=== PATIENT | male | born 1950 | race Caucasian/White ===

== ENCOUNTER 2017-02-28 08:58 | Emergency (ER) | payer OTHER ==
[~2017-02-28] VITALS: Ht 188 cm; Wt 115.9 kg
[~2017-02-28 08:58] MED LIST: no med's
[2017-02-28 09:03] VITALS: BP 154/87; PULSE 56; RESP 24; O2SAT 96
--- NOTE | 2017-02-28 09:18 | ED.REPORT ---
HPI-Stroke / CVA February 28, 2017 ED Provider: Dr. Becerra 66 y/o male with no pertinent hx presents to the ED complaining of aphasia about 4 weeks ago. The pt reports he had an [facility]ural [facility] for his [facility] pain 4 weeks ago. As per his , on their way home from the [facility], the pt was quiet, his responses were delayed and unclear. He also experienced a significant decrease in appetite and balance. The pt had an MRI and was told to go to the ED today after Dr. Soni got the MRI results a week ago and told the pt he may have had a stroke. The pt's friends and family had also noticed the symptoms. Currently, the pt feels slightly fatigued but reports improvement in his speech and appetite. He feels better overall and is able to carry out his daily activities normally. As per the , his sx resolved about 2 weeks ago. He denies numbness, weakness, dysphagia, dysuria, hematuria and hematochezia. The pt's reports she would not have asked the pt to come in had they not received a call from their doctor regarding the MRI results. The pt's father had a CVA at age 70. Nursing Notes Stated Complaint: POSSIBLE STROKE Chief Complaint: Neuro Symptoms/ Deficits Nursing Notes Reviewed: Yes ([employer], meds not reconciled) Allergies: Coded Allergies: No Known Allergies (Unverified Allergy, Unknown, 07/17/14) Scheduled Atorvastatin (Lipitor) 10 Mg Tab 10 MG PO DAILY Miscellaneous Medications ([no med's]) (Reported) General Time Seen by Provider: 09:35 Chief Complaint Unable to speak Hx Obtained From: Patient Arrived By: Walk-in Time last known well 4 weeks ago Sudden in Onset?: Yes Symptom Duration: 21 - 23 hours Progression Since Onset: Resolved Severity: Current: No pain currently Severity: Maximum: No pain Recent Healthcare: Recent doctor visit Similar Sx Previous: No Risk Factors NIH Stroke Scale Level of Consciousness: Alert and responsive (0) Ask Month & Age: Both questions right (0) Open/Close Eyes/Hand College Associate: Performs both tasks (0) Horizontal EO Movements: None (0) Visual Odom: No visual loss (0) Facial Palsy: Normal symmetry (0) Right Arm Motor Drift (10s): No drift 10 sec (0) Left Arm Motor Drift (10s): No drift 10 sec (0) Right Leg Motor Drift (5s): No drift 5 sec (0) Left Leg Motor Drift (5s): No drift 5 sec (0) Limb Ataxia FNF/Heel-Crawford: No ataxia (0) Sensation (Arms/Legs/Face): No sensory loss (0) Language Aphasia: No aphasia, normal (0) Dysarthria: No dysarthria, normal (0) Extinction/Inattention: No exctinct/inattent (0) NIHSS Score: 0 Time NIHSS Performed: 09:40 Date NIHSS Performed: February 28, 2017 )( CVA Risk Stratification Age >60 Risk factors reviewed Past Medical History Past Medical History Diverticulitis Kidney stons Back injury Past Surgical History RTKA IHR UHR removal of fatty lipoma MRSA sx Smoking History Former Smoker Social History Alcohol Use: "Social" Drug Use: Denies drug use Other Social History: Good social support, Ambulatory Status Independent Review of Systems Reports: decrease in appetite. Reports: change in balance. Constitutional: Reports: Fatigue GI: Denies: Dysphagia, Hematochezia Neurologic: Reports: Unable to speak, Denies: Numbness, Weakness Complete sys rev & neg: except as marked. Male: Denies Dysuria, Denies Hematuria Physical Exam Initial Vital Signs Vital Signs (First) Date Time Temp Pulse Resp B/P Pulse Ox O2 Delivery O2 Flow Rate FiO2 02/28/17 09:03 56 24 154/87 96 Room Air Initial VS: Reviewed, Unavailable (incomplete, no temp, ordered), Vital signs abnormal Abdomen / GI: Soft, Non-tender, No guarding, No rebound, No distention Extremities: Vascular intact, Neuro intact, No swelling, No tenderness Skin: Warm, Dry, No cyanosis General/Constitutional: Awake, Alert, No acute distress, Well appearing, Cooperative Head / Eyes: Atraumatic, Normocephalic, PERRL, EOMI Neck: Atraumatic, Supple, Full range of motion Respiratory / Chest: Atraumatic, Breath sounds NL, Breath sounds = bilat, No respiratory distress, No rales, No rhonchi, No wheezing Cardiovascular: Heart rate NL, Regular rhythm, Heart sounds NL, No gallop, No murmurs, No rubs Neurologic: Oriented X3, Speech NL, No motor deficits, No sensory deficits, CN II - XII intact Upper Extremity / MS: Atraumatic, Full range of motion, No deformity, Neurologic intact, Vascular intact Lower Extremity / Pelvis / MS: Atraumatic, Full range of motion, No deformity, Neurologic intact, Vascular intact Interpretation & Diagnostics Procedure: Brain with and without contrast at [facility], 02/20/17 at 15:08 Impression: 1) Findings consistent with subacute ischemic insult involving the right basal ganglia, with concomitant findings suspicious for subacute hemorrhagic conversion. No associated mass effects currently. 2) Mild periventricular white matter chronic small vessel ischemic change, as well as several additional nonacute lacunar infarcts of the right soler radiata. Approved by: Hal Sainz M.D. PROCEDURE: US BILATERAL DUPLEX DOPPLER IMAGING OF THE CAROTIDS ([id number]) IMPRESSION: Less than 50% bilateral internal carotid artery stenosis. Dictated by: Alfredo Hoskins [facility] Interpreted: Jamin Jay MD on 02/28/2017 at 11:21 Transcribed by: GARETT on 02/28/2017 at 11:23 PROCEDURE: CT ANGIO HEAD AND NECK (P) IMPRESSION: 1. Evolving subacute infarct involving right globus pallidus, right caudate head and anterior limb of right internal capsule. 2. No acute intracranial disease process. 3. Mild multiple [id number] atherosclerotic stenoses involving the cavernous and supraclinoid segments of the intracranial internal carotid arteries bilaterally. 4. Mild atherosclerotic disease involving the origins of the internal carotid arteries bilaterally without measurable stenosis. 5. Vertebral arteries are fully patent. Dictated by: Altagracia Betancur MD, PhD on 02/28/2017 at 14:30 Approved by: Altagracia Betancur MD, PhD on 02/28/2017 at 14:42 Lab Results Interpretation Result Diagram: 02/28/17 1015 02/28/17 1015 Test 02/28/17 10:15 White Blood Count 4.8th/mm3 (3.8-10.1) Red Blood Count 4.63mil/mm3 (4.40-5.80) Hemoglobin 14.3g/dL (13.8-17.2) Hematocrit 41.4% (41.0-50.0) Mean Corpuscular Volume 89.4fL (81-100) Mean Corpuscular Hemoglobin 30.9pg (27.0-35.0) Mean Corpuscular Hemoglobin Concent 34.5% (32.0-37.0) Red Cell Distribution Width 13.2% (12.3-15.4) Platelet Count 135bil/L (150-400) Neutrophils (%) (Auto) 69.7% (40-74) Lymphocytes (%) (Auto) 21.5% (14-46) Monocytes (%) (Auto) 6.5% (4-12) Eosinophils (%) (Auto) 1.7% (0-5) Basophils (%) (Auto) 0.4% (0-3) Sodium Level 138mEq/L (134-144) Potassium Level 4.3mEq/L (3.5-5.2) Chloride Level 102mEq/L (97-108) Carbon Dioxide Level 24mmol/L (18-29) Blood Urea Nitrogen 20mg/dL (8-27) Creatinine 0.71mg/dL (0.76-1.27) Estimat Glomerular Filtration Rate 117mL/min (>59) Glucose Level 106mg/dL (60-99) Calcium Level 9.3mg/dL (8.5-10.1) Total Bilirubin 0.5mg/dL (0.0-1.2) Aspartate Amino Transf (AST/SGOT) 19U/L (0-50) Alanine Aminotransferase (ALT/SGPT) 14U/L (0-44) Alkaline Phosphatase 73U/L (25-160) Total Protein 7.0g/dL (6.4-8.4) Albumin 4.1g/dL (3.4-5.0) Triglycerides Level 111mg/dL (0-149) Cholesterol Level 213mg/dL (100-199) LDL Cholesterol, Calculated 143.800mg/dL (0-99) VLDL Cholesterol 22.200mg/dL HDL Cholesterol 47mg/dL (>39) Cholesterol/HDL Ratio 4.53 (0.0-4.4) Hold Cortez Top Tube Received (Received) ECG Interpretation ECG Interpretation: Sinus bradycardia. Rate 58 Incomplete right BBB Borderline LVH No acute dysrhythmia or Ischemic changes. Time: 09:56 Interpreted by: ED physician Re-Eval/Medical Decision Med Decision/Clinical Course This is a gentleman who lives on the [place] [facility] and indicates [facility] for evaluation of a recent stroke. The patient reports that approximately one month ago and underwent an epidural injection for back pain, which did resolve his back pain- high reading indicates the post procedure he was inappropriately fatigue, drowsy and may have had some difficulty with word finding. He had no focal numbness or weakness of the extremities no falls or trauma. However symptoms lasted several days, which point work to set up a PCP [id number] was seen and then had an outpatient MRI arranged which was done last week. That with the [facility] yesterday to get the results, but it did not get results of the time his visit. However when he returned home he there was a phone message indicating that this the MRI that had been done last week was positive for stroke and they should come to the emergency department-so we did so today. He is however not currently having any symptoms and has not any symptoms resolved more than a week ago. Currently on any medications-he had been taking aspirin prior to his epidural injection, but that was taking it for back pain and since the epidural injection resolve the pain he has not taken any. He has not have a history of high blood pressure, high cholesterol or diabetes. Department he appears well. He has a normal neurologic exam and an NIH stroke scale is 0 for me. She is not a candidate for tPA for multiple reasons. The MRI he had performed was done at [facility] last week and was reviewed. The patient given his asymptomatic and indicates he would not come in except the phone call, does not wish to stay in the hospital to pursue workup-the patient is now 1 month out and has not undergone a stroke evaluation. He had an EKG that demonstrated normal sinus rhythm, he had an echocardiogram that was revealed a positive bubble study is suggestive of a small shunt, possibly a parade and foramen ovale, and this was discussed with the on-call neurologist who does recommend daily 325 mg aspirin and outpatient cardiology referral. The carotid ultrasound that was negative for significant occlusive disease, and the neurologist recommended CT angiography of the head neck which was negative for severe disease. Blood work was notable for mild hyperlipidemia, and the neurologist recommends going ahead initiating a statin therapy, so a prescription for atorvastatin has been written. The patient is being discharged in stable condition. Possibly the swallow evaluation. His thought he had some leg swelling, a given the report of a possible patent foramen ovale or intracardiac shunt he underwent a duplex ultrasound of both lower extremities this was negative as well. He is discharged asymptomatic. Careful routine and return precautions reviewed. All of his imaging results and laboratory tests were provided to take them to [facility]. Source of Hx: Old records Re-Evaluation/Progress #1: Time of Eval: 12:36 Re-Evaluation/Progress Note: Rechecked pt. Discussed diagnosis and plan to discharge Informed the pt CT results are pending. Re-Evaluation/Progress #2: Time of Eval: 14:47 Re-Evaluation/Progress Note: Rechecked pt. Discussed lab, imaging results and diagnosis. Informed the pt of the plan to discharge. Pt understands and agrees with plan. F/U instructions and RTER warning given. All questions addressed. Consultation #1: Referral / Consult Name: Ashley Jurado MD Consulted With: Neurology Call Returned at: 12:22 Transit Department Clerk: Agrees with eval, Agrees with plan Note: Dr. Lr recommends that pt gets CT angio. She recommends pt take Statin and outpatient follow up with Cardiology for PFO workup. Consultation #2: Referral / Consult Name: Ashley Jurado MD Consulted With: Neurology Requested Call at: 14:50 Transit Department Clerk: Agrees with eval, Agrees with plan Note: Dr. Lr read the CT angio and agrees with the plan to discharge pt. Counseled Regarding: Diagnosis, Lab results, Need for follow-up, When/why to return to ED Patient Discharge & Departure Impression: Primary Impression: Stroke CVA mechanism: unspecified Qualified Code: I63.9 - Cerebral infarction, unspecified Additional Impression: Hyperlipidemia Hyperlipidemia type: unspecified Qualified Code: E78.5 - Hyperlipidemia, unspecified Disposition: Home Discharge Condition All VS Reviewed: Yes Condition: Stable Additional Instructions: 1. You were sent to the emergency department by the [facility] because your MRI last week demonstrated that you have had a small stroke. 2. You underwent an extensive evaluation to further risk stratify evaluate for possible reversible and or treatable causes for stroke. He had a carotid ultrasound of the neck, which revealed no significant disease of the carotid vessels. 3 You underwent a cardiac echocardiogram which did suggest a small intracardiac shunt, likely from a small patent foramen ovale. This makes it easier for you to have a small clot cross the heart and cause stroke, and the recommendations are to fold: First used to take aspirin 325 mg daily. Second, you need to follow up with the [facility] clinic, for referral to cardiology as it would likely perform some additional imaging to further clarify if any additional intervention is warranted. 4. Your blood work was generally normal, although your lipid level was marginally elevated-and it is recommended in the setting of a stroke that he will initiate a statin medication to help prevent plaque progression. Take 10 mg daily and follow-up with the [facility] clinic. 5. You underwent a swallow evaluation that was normal. 6. You underwent a brain and neck CT angiogram which showed no major vessel stenoses. 7. Activities and diet as tolerated. 8. Return to the emergency department if he developed new, or worsening symptoms. Referrals: Jazmine Soni MD (PCP) Scribe Attestation Portions of this note were transcribed by Theodore Cornejo. I, , personally performed the history, physical exam and medical decision-making;I reviewed and confirmed the accuracy of the information in the transcribed note. Signed by Reena Coleman. 02/28/17 0992 copies to: Jazmine Soni MD, Matthew F MD February 28, 2017 09:18 Theodore Cornejo February 28, 2017 09:46
[2017-02-28 10:21] LABS: BASOPHILS % (AUTO) 0.4 % (0-3); EOSINOPHILS % (AUTO) 1.7 % (0-5); MONOCYTES % (AUTO) 6.5 % (4-12); Mean Corpuscular Hemoglobin 30.9 pg (27.0-35.0); Mean Corpuscular Volume 89.4 fL (81-100); NEUTROPHILS % (AUTO) 69.7 % (40-74); Platelet Count 135 bil/L (150-400)
--- NOTE | 2017-02-28 11:24 | DRSVH ---
PROCEDURE: US BILATERAL DUPLEX DOPPLER IMAGING OF THE CAROTIDS ([id number]) INDICATIONS: cva TECHNIQUE: Color and pulse Doppler interrogation was performed of both carotid systems, with image documentation and velocity measurements. COMPARISON: None. FINDINGS: All stenosis calculations are based on NASCET criteria. Right side: Brachial blood pressure: 150/80 mm Hg. Common Carotid Artery(Distal) PSV: 98.90 cm/s Internal Carotid Artery PSV- Proximal: 84.50 cm/s Mid-lon.20 cm/s Distal: 96.60 cm/s EDV - Proximal: 8.70 cm/s Mid-lon.40 cm/s Distal: 28.30 cm/s External Carotid Artery(Proximal) PSV: 130.10 cm/s ICA/CCA PSV ratio: 1.0 Rucker scale imaging description: Moderate scattered plaque. Percent internal carotid artery stenosis: Less than 50%. Vertebral artery: Flow direction is antegrade. Left side: Brachial blood pressure: 150/80 mm Hg. Common Carotid Artery(Distal) PSV: 119.70 cm/s Internal Carotid Artery PSV - Proximal: 93.90 cm/s Mid-lon.70 cm/s Distal: 60.20 cm/s EDV - Proximal: 17.20 cm/s Mid-lon.50 cm/s Distal: 20.60 cm/s External Carotid Artery(Proximal) PSV: 117.70 cm/s ICA/CCA PSV ratio: 0.9 Rucker scale imaging description: Moderate scattered plaque. Percent internal carotid artery stenosis: Less than 50%. Vertebral artery: Flow direction is antegrade. IMPRESSION: Less than 50% bilateral internal carotid artery stenosis. Dictated by: Alfredo Hoskins RRA Interpreted: Jamin Jay MD on 02/28/2017 at 11:21 Transcribed by: GARETT on 02/28/2017 at 11:23 Approved by: Jamin Jay M.D. on 02/28/2017 at 17:48
[2017-02-28 12:10] VITALS: BP 137/68; PULSE 60; RESP 14; O2SAT 97
--- NOTE | 2017-02-28 12:53 | DRSVH ---
[facility] [address] [address] Echocardiogram Report Name: ISIDRO BRIGHT Study Date: 02/28/2017 Height: 74 in Hospital Exam Location: [facility] Weight: 255 lb Gender: Male BSA: 2.4 m2 : 1950 Age: 66 yrs BP: 154/87 mmHg Reason For Study: CVA Ordering Physician: Performed By: [facility] Interpretation Summary Left ventricular size is at the upper limits of normal. Proximal septal thickening is noted. Left ventricular systolic function is normal without focal wall motion abnormalities. The ejection fraction is estimated to be 60- 65%. The right ventricle is mildly dilated. The right ventricular systolic function is normal. The right ventricular systolic pressure is estimated at 31 mmHg assuming a right atrial pressure of 3 mm Hg. Both atria are mildly dilated. Injection of contrast with valsalva documented an interatrial shunt. There is mild to moderate aortic regurgitation. There is an eccentric jet of aortic insufficiency directed against the anterior mitral leaflet. There is mild mitral regurgitation. There is no other significant valvular heart disease. The aortic root is mildly dilated. The ascending aorta is mild-moderately enlarged. Procedure: A two-dimensional transthoracic echocardiogram with color flow and Doppler was performed. The study quality was technically adequate. There is no prior echocardiogram noted for this patient. A saline contrast injection was performed to assess for cardiac shunting. The patient was in sinus bradycardia with heart rates between 54-60 bpm during the exam. Left Ventricle: Left ventricular size is at the upper limits of normal. Proximal septal thickening is noted. Left ventricular systolic function is normal without focal wall motion abnormalities. The ejection fraction is estimated to be 60-65%. Assessment of diastolic parameters indicates normal left ventricular diastolic function and normal filling pressures. Right Ventricle: The right ventricle is mildly dilated. The right ventricular systolic function is normal. Atria: Both atria are mildly dilated. Injection of contrast with valsalva documented an interatrial shunt. Mitral Valve: The mitral valve is normal in structure and function. There is mild mitral regurgitation. Aortic Valve: The aortic valve is normal in structure but functionally abnormal. The aortic valve opens well. There is mild to moderate aortic regurgitation. There is an eccentric jet of aortic insufficiency directed against the anterior mitral leaflet. Tricuspid Valve: The tricuspid valve is normal in structure and function. There is mild tricuspid regurgitation. The right ventricular systolic pressure is estimated at 31 mmHg assuming a right atrial pressure of 3 mm Hg. Pulmonic Valve: The pulmonic valve leaflets are thin and pliable; valve motion is normal. There is mild pulmonic regurgitation. There is no other significant valvular heart disease. Great Vessels: The aortic root is mildly dilated. The ascending aorta is mild-moderately enlarged. The aortic arch is normal in size. The IVC is of normal diameter and collapses greater than 50% with a sniff. This suggests a low right atrial pressure of 3 mm Hg. Pericardium/ Pleura There is no pericardial effusion. MMode/2D Measurements & Calculations LVIDd: 5.8 cm RA long axis LVOT diam: 2.3 cm LVIDs: 3.3 cm LA A2 area: 26.7 cm Ao root diam FS: 42.3 % LA A4 area: 25.7 cm RA area EPSS: 2.1 cm LA length (vol) Aortic Jxn: 3.2 cm IVSd: 1.5 cm : 24.1 cm asc Aorta Diam LVPWd: 0.99 cm LA vol: 88.3 ml RA vol LA vol index : 75.8 ml Ao Arch Diam (Prox RA Trans): 2.9 cm : 31.4 mm2 IVC diam: 1.3 cm LV cheng. diameter/BSA LV sys. diameter/BSA RVD1 (basal) TAPSE: 2.5 cm (cm/m^2): 2.4 (cm/m^2): 1.4 Doppler Measurements & Calculations Ao V2 max MV E max arias MV E/A: 1.0 TR max arias : 145.3 cm/sec : 71.2 cm/sec Med Peak E' Arias : 268.2 cm/sec Ao max PG MV A max arias TR max PG : 8.4 mmHg : 68.6 cm/sec E/E' med: 13.2 : 28.8 mmHg Ao mean PG MV P1/2t: 87.1 msec Lat Peak E' Arias PA V2 max : 126.7 cm/sec LVOT Max Arias E/E' lat: 9.2 PA mean PG : 119.2 cm/sec E/e' average PA Accel Time CAYLA(I,D): 3.6 cm : 0.10 sec sev ratio MV dec time MV P1/2t max arias Ao V2 mean LV V1 max PG : 0.30 sec : 97.7 cm/sec MVA(P1/2t): 2.5 cm2 Ao V2 VTI: 33.9 cmLV V1 VTI CAYLA(V,D): 3.5 cm2 : 28.7 cm PA V2 mean CAYLA indexed to BSA : 77.1 cm/sec (cm^2/m^2): 1.5 Reading Physician:PM
--- NOTE | 2017-02-28 13:29 | NUR ---
Evaluation completed. Please go to "Notes" then click on "Assessments and Notes" (bottom left corner of screen). Then select appropriate discipline tab on top of screen.
--- NOTE | 2017-02-28 13:44 | DRSVH ---
PROCEDURE: US VENOUS LEG DUPLEX BILATERAL INDICATIONS: +CVA, +bubble study echo, ro DVT TECHNIQUE: Real-time imaging, as well as color and pulse Doppler interrogation, were performed of the deep veins of both legs from the inguinal ligament to the popliteal fossa. COMPARISON: None. FINDINGS: The deep veins are normally compressible, and free of intraluminal thrombus. Color and pu lse Doppler demonstrate normal phasic intravascular flow. There is normal augmentation response to d istal compression maneuver. IMPRESSION: No DVT in lower extremities bilaterally. Dictated by: Jamin Jay M.D. on 02/28/2017 at 13:42 Approved by: Jamin Jay M.D. on 02/28/2017 at 13:43
[2017-02-28] MEDS ORDERED: ATRV10T PO (14:02)
[2017-02-28 14:30] VITALS: BP 136/72; PULSE 64; RESP 14; O2SAT 97
--- NOTE | 2017-02-28 14:43 | DRSVH ---
PROCEDURE: CT ANGIO HEAD AND NECK (P) INDICATIONS: cva TECHNIQUE: Pre-contrast 4.5 mm thick sections acquired from the foramen magnum to the vertex. After the adminis tration of intravenous contrast, 1 mm thick sections acquired from the aortic arch through the [place] of [place]. Post-contrast 4.5 mm thick sections then re-acquired from the foramen magnum to the vert ex. 3-dimensional bfwaafx-xonelrprl-wckrmfqezd (MIP) and/or volume rendering reformats were acquired of the central intracranial vasculature and neck separately. For radiation dose reduction, the foll owing was used: automated exposure control, adjustment of mA and/or kV according to patient size. COMPARISON: [facility], MR, BRAIN W&WO CONTRAST, 02/20/2017, 14:25. FINDINGS: Image quality: Excellent. BRAIN: CSF spaces: Ventricles are normal in size and shape. Basal cisterns are patent. No extra-axial flu id collections. Brain: No midline shift. No intracranial bleeds or masses. Small hypodensity involving the right gl obus pallidus, anterior limb of the right internal capsule and the right caudate head compatible with evolving subacute infarct is noted. Skull and face: Calvarium and facial bones appear intact, without suspicious lesions. Orbits appear normal. Sinuses: Sinuses and mastoids are clear. HEAD CT ANGIOGRAPHY: Anterior circulation: Intracranial internal carotid arteries are normal in flow. Scattered atheroscl erotic calcifications noted in the cavernous and supraclinoid segments of the internal carotid arteri es bilaterally which caused mild multifocal stenoses. The flow within the paired anterior cerebral ar teries is normal and symmetric. The flow within the middle cerebral arteries is normal and symmetric . The anterior communicating artery is seen. No aneurysms are seen. Posterior circulation: Visualized portions of the vertebral arteries demonstrate normal caliber, and join to form a normal appearing basilar artery. Flow within the posterior cerebral arteries is norm al and symmetric. No aneurysms are seen. Dural sinuses demonstrate normal postcontrast enhancement. NECK CT ANGIOGRAPHY: Carotid system: The great vessels demonstrate a conventional anatomy as they arise from the aortic a rch. The origins of the common carotid arteries appear patent. The common carotid arteries demonstr ate normal caliber and courses. Atherosclerotic calcifications noted in the origins of the internal c arotid arteries bilaterally which do not cause measurable stenosis. Posterior circulation: The origins of the vertebral arteries both appear widely patent. The more moralez perior extracranial portions of both vertebral arteries also demonstrate normal courses and calibers. They join to form a normal appearing basilar artery. Soft tissues: Visualized neck soft tissues demonstrate no suspicious abnormalities. Bones: Spine degenerative disc disease and facet arthropathy. No suspicious bony lesions. Visualized cervical spine appears normally aligned. IMPRESSION: 1. Evolving subacute infarct involving right globus pallidus, right caudate head and anterior limb of right internal capsule. 2. No acute intracranial disease process. 3. Mild multiple [id number] atherosclerotic stenoses involving the cavernous and supraclinoid s egments of the intracranial internal carotid arteries bilaterally. 4. Mild atherosclerotic disease involving the origins of the internal carotid arteries bilaterally wi thout measurable stenosis. 5. Vertebral arteries are fully patent. Dictated by: Altagracia Betancur MD, PhD on 02/28/2017 at 14:30 Approved by: Altagracia Betancur MD, PhD on 02/28/2017 at 14:42
[2017-02-28 15:15] VITALS: BP 136/72; PULSE 64; RESP 14; O2SAT 97
== END 2017-02-28 15:00 | disposition home or self-care (01) ==
LOC: SED 08:58
DX: I63.9 Cerebral infarction, unspecified (principal); E78.5 Hyperlipidemia, unspecified; Z87.891 Personal history of nicotine dependence; Z79.899 Other long term (current) drug therapy
CPT/HCPCS: 36415; 70496; 70498; 80053; 80061; 85025; 92610; 93005; 93880; 93970; 99284; C8929; Q9967